=== PATIENT | female | born 1955 | race Caucasian/White ===

== ENCOUNTER 2019-09-10 21:58 | Emergency (ER) | payer MEDICARE, BC ==
[2019-09-10] MEDS ORDERED: Sodium Chloride 0.9% 10 ML Syringe FLUSH PRN (22:19)
--- NOTE | 2019-09-10 22:31 | EDM.PDOC ---
ED HPI GENERAL MEDICAL PROBLEM - General Chief Complaint: Chest Pain Stated Complaint: SOB HIGH BLOOD PRESSURE CHEST TIGHTNESS Time Seen by Provider: 09/10/19 22:31 - History of Present Illness INITIAL COMMENTS - FREE TEXT/NARRATIVE: 64-year-old female presents the emergency room with elevated blood pressure. The patient about an hour to an hour and a half ago noticed that her blood pressure was up she was not feeling right so her daughter checked her blood pressure it was 220/180 it was checked twice and the results were the same.. The patient is treated for hypertension she takes metoprolol 25 mg once a day. Patient did not have any chest pain chest pressure with this however she did have a bit of a headache with it. Is all completely normalized now the patient felt good when she checked into the emergency room however blood pressure was still elevated but seems to be trending downward. The patient is visiting her daughter from [facility]. Chest Pain Score (Numeric/FACES): 7 - Related Data Allergies Allergy/AdvReac Type Severity Reaction Status Date / Time No Known Allergies Allergy Verified 09/10/19 22:12 Past Medical History Cardiovascular History: Reports: High Cholesterol, Hypertension Neurological History: Reports: TIA Endocrine/Metabolic History: Reports: Diabetes, Type II - Past Surgical History HEENT Surgical History: Reports: Other (See Below) Other HEENT Surgeries/Procedures: eye lid lift ED ROS GENERAL - Review of Systems Review Of Systems: See Below Constitutional: Reports: No Symptoms HEENT: Reports: No Symptoms Respiratory: Reports: No Symptoms Cardiovascular: Reports: No Symptoms. Denies: Palpitations Endocrine: Reports: No Symptoms GI/Abdominal: Reports: No Symptoms : Reports: No Symptoms Musculoskeletal: Reports: No Symptoms Skin: Reports: No Symptoms Neurological: Reports: Headache (Transient and resolved) Psychiatric: Reports: No Symptoms Hematologic/Lymphatic: Reports: No Symptoms Immunologic: Reports: No Symptoms ED EXAM, GENERAL - Physical Exam Exam: See Below Exam Limited By: No Limitations General Appearance: Alert, No Apparent Distress Ears: Normal External Exam, Normal Canal, Hearing Grossly Normal, Normal TMs Nose: Normal Inspection, Normal Mucosa, No Blood Throat/Mouth: Normal Inspection, Normal Lips, Normal Teeth, Normal Gums, Normal Oropharynx, Normal Voice, No Airway Compromise Head: Atraumatic, Normocephalic Neck: Normal Inspection, Supple, Non-Tender, Full Range of Motion. No: Lymphadenopathy (L), Lymphadenopathy (R) Respiratory/Chest: No Respiratory Distress, Lungs Clear, Normal Breath Sounds Cardiovascular: Regular Rate, Rhythm, No Edema, No Murmur GI/Abdominal: Normal Bowel Sounds, Soft, Non-Tender Back Exam: Normal Inspection, Full Range of Motion. No: CVA Tenderness (L), CVA Tenderness (R) Extremities: Normal Inspection, No Pedal Edema Course - Vital Signs Last Recorded V/S: Last Vital Signs Temp 36.6 C 09/10/19 22:08 Pulse 95 09/10/19 22:08 Resp 20 09/10/19 22:08 BP 191/101 H 09/10/19 22:08 Pulse Ox 93 L 09/10/19 22:08 - Orders/Labs/Meds Orders: Active Orders 24 hr Category Date Time Status EKG Documentation Completion [RC] STAT Care 09/10/19 22:19 Active Peripheral IV Care [RC] . DIRECTED Care 09/10/19 22:20 Active Chest 2V [CR] Stat Exams 09/10/19 22:19 Ordered CBC WITH MANUAL DIFF [HEME] Stat Lab 09/10/19 22:36 Received COMPREHENSIVE METABOLIC PN,CMP [CHEM] Stat Lab 09/10/19 22:36 Received INR,PT,PROTHROMBIN TIME [COAG] Stat Lab 09/10/19 22:36 Received MAGNESIUM [CHEM] Stat Lab 09/10/19 22:36 Received PRO B-TYPE NATRIUR PEPT,BNPPRO [CHEM] Stat Lab 09/10/19 22:36 Received PTT,PARTIAL THROMBOPLSTIN TIME [COAG] Stat Lab 09/10/19 22:36 Received TROPONIN I [CHEM] Stat Lab 09/10/19 22:36 Received Sodium Chloride 0.9% [Saline Flush] Med 09/10/19 22:19 Active 10 ml FLUSH ASDIRECTED PRN Peripheral IV Insertion Adult [OM.PC] Stat Oth 09/10/19 22:19 Ordered Medication Orders Sodium Chloride (Saline Flush) 10 ml FLUSH ASDIRECTED PRN PRN Reason: Keep Vein Open Meds: Medications Generic Name Dose Route Start Last Admin Trade Name Freq PRN Reason Stop Dose Admin Sodium Chloride 10 ml 09/10/19 22:19 Saline Flush FLUSH ASDIRECTED PRN Keep Vein Open - Re-Assessments/Exams Free Text/Narrative Re-Assessment/Exam: 09/10/19 23:00 Labs ordered EKG has no acute changes has a borderline prolonged QT. Did discuss getting a head CT and the patient declined this. And the patient states she really wants to go home. Her blood pressure is trending downward we will continue to observe for now awaiting labs Departure - Departure Referrals: PCP,Not In Area [Primary Care Provider] - Forms: ED Department Discharge Sepsis Event Note (ED) - Evaluation Sepsis Screening Result: No Definite Risk - Focused Exam Vital Signs: Vital Signs Temp Pulse Resp BP Pulse Ox 09/10/19 22:08 36.6 C 95 20 191/101 H 93 L
[2019-09-11] MEDS ORDERED: Aspirin 81 MG Tab.Chew ONE (03:27)
--- NOTE | 2019-09-11 08:10 | CR ---
Chest: 2 views of the chest were obtained. Comparison: No prior chest imaging. Heart size and mediastinum are normal. Lungs are clear with no acute parenchymal change. Previous left shoulder surgery is noted. Impression: 1. Nothing acute is seen on 2 view chest x-ray. Diagnostic code #2 This report was dictated in MDT
--- NOTE | 2019-09-11 11:37 | ER ---
CONTINUATION: 09/10/2019 - 09/11/2019 EMERGENCY ROOM COURSE: The patient has done well. Her blood pressures have been fairly stable. [employer] went down and is down currently, but we were able to access some of her laboratory work. When she had her first set drawn, her troponin was 0.055, creatinine 2.10, magnesium 2.0, sodium 140, potassium 3.6, and chloride 102. CBC showed a white count of 9000, hemoglobin and hematocrit of 12.5 and 40% respectively, and platelet count of 223,000. White cell differential revealed 81% segs, no bandemia, and 18% lymphs. Chest x-ray was done, 2-view, which shows no acute cardiopulmonary changes per my interpretation. EKG showed some nonspecific repolarization abnormalities, mostly in the lateral leads. She has very subtle ST depression in V4 and V5, isolated T-waves in aVL. Otherwise, no appreciated abnormalities. The patient's blood pressure upon arrival here was systolic of 110, but shortly after arrival, her pressure came down into the 150s and 160s and gradually into the 140s without any intervention. Because of the uncertainty of her story, I went ahead and wanted her stay for repeat troponin. This came back elevated at 3.094. This was definitely concerning. I discussed the situation with Dr. Salinas at [id number]. He advised transfer for further cardiac evaluation. Thought, she probably has some fixed cardiac deficits and advised against starting heparin. The patient is already on metoprolol and has already had aspirin. He recommended having hospitalist admit her. I did discuss the situation with Dr. Mccord who kindly accepted the patient in transfer. To the best of my ability, I explained the situation without having access to patient's medical records. After my conversation with Dr. Mccord, we did find her prior laboratories. ASSESSMENT: 1. Elevated troponin. 2. Transient elevated hypertension, resolved on its own. PLAN: The patient will be transferred to [place] in [place]. MMODAL /[id number]
== END 2019-09-11 04:37 ==
LOC: JD.ED 21:58
DX: I10 Essential (primary) hypertension (principal); R79.89 Other specified abnormal findings of blood chemistry; E11.9 Type 2 diabetes mellitus without complications; Z86.73 Personal history of transient ischemic attack (TIA), and cerebral infarction without residual deficits
CPT/HCPCS: 36415; 71046; 71046-26; 80053; 83735; 83880; 84484; 85007; 85027; 85610; 85730; 93005; 99284-25; A9270-GY